=== PATIENT | male | born 1950 | race Caucasian/White ===

== ENCOUNTER 2016-06-12 09:23 | Day surgery (SDC) | payer MEDICARE ==
[~2016-06-12] VITALS: Ht 169.6 cm; Wt 85.9 kg
[2016-06-12] VITALS (10 sets, daily range): BP systolic 120–139; BP diastolic 68–91; PULSE 62–73; RESP 12–18; O2SAT 95–98
[~2016-06-12 09:23] MED LIST: CeFAZolin 2 Gm/50 mL D5W IV Premix IV ONE; Lactated Ringer's 1,000 ML IV ONE
[2016-06-12] MEDS ORDERED: MetoCLOpramide 5 mg/mL 2 mL Inj ONE (09:24)
[2016-06-12] MEDS ORDERED: Ondansetron 2 mg/mL 2 mL Inj ONE (09:24)
[2016-06-12] MEDS ORDERED: Dexamethasone 4 mg/mL Inj ONE (09:24)
[2016-06-12] MEDS ORDERED: Propofol 10,000 mCg/mL 20 mL Inj ONE (09:24)
[2016-06-12] MEDS ORDERED: Ketamine 10 mg/mL 20 mL Inj ONE (09:24)
--- NOTE | 2016-06-12 10:36 | PCM.HPANE ---
Patient Data Surgeon Admitting Provider: Attending Provider:Karrie Smith MD Primary Care Physician:Simba Bird DO Other Provider:Ana Laura Gainesingham Anesthesia Reason for Visit Left Spermatocele Ht/WT & BMI Height (Feet): 5 Height (Inches): 6.75 Weight (Kilograms): 85.9 Body Mass Index 29.00 Allergies Coded Allergies: No Known Allergies (Unverified , 06/08/16) Past Anesthesia History Anesthesia History: Denies:: Anesthesia Reactions, Fam Anesthesia Reaction, Fam Malignant Hypertherm, Malignant Hyperthermia Diabetes History Hx Diabetes?: No MRSA MRSA: No Medications Home Meds Incl Beta Panchito: No Discontinued Reported Medications Loratadine (Claritin)10 Mg [id number] Mg PO DAILY Ref 0 12/15/15 History History of ENT Problems?: Yes HEENT History: Positive for:: Sinus Problem (SEASONAL ALLERGIES) Hx of Heart Problems?: No Cardiovascular History: Denies:: Heart Murmur Hypertension Hx of Respiratory Problem?: No Respiratory History: Denies:: Use of C-PAP Machine Hx Neurologic Problems?: No Hx of GI Problems?: No Hx of Problems?: Yes Other Pertinent History: C/OF SLOWED STREAM Male Hx: Positive for:: Scrotal Mass (LT SPERMATOCELE=CURRENT PROBLEM S/P LT SPERMATOCELECTOMY/HYDROCELECTOMY) Denies:: Prostate Problems Skin History: Positive for:: History Skin Disorders? (HX OF AXILLARY LYMPHADENOPATHY ) Denies:: Pressure Ulcers Hx Musculoskeletal Problems?: Yes Musculoskeletal History: Positive for:: Osteoarthritis Hx of Psycho/Social Problems?: No Hx Surgeries?: Yes (LT SPERMATOCELECTOMY/HYDROCELECTOMY) Hx Any Other Health Problems?: Yes Other History: Denies:: Cancer Endocrine Disease (C/OF NIGHT SWEATS) Hospitalization Thyroid Disease History Blood Transfusions: Denies:: Blood Transfusions Hx Diabetes: No Smoking Status: Smoker Current Status UNK Stop/Bang Treated for Sleep Apnea?: No Do You Have a CPAP Machine?: No S-Snoring: Do You Snore Loudly: No T-Tired: feel tired, fatigued: No O-Obsered: Observed not breath: Yes P-Blood Pressure: treated: No B- Body Mass Index > 35 kg/m2: No A- Age over 50: Yes N- Neck Large Circumference: No G- Gender Male: Yes JANINA Total Score: 3 JANINA Risk Assessment: Low Risk, <3 Yes Risk Assessment Category Category 1A: Patient has history of documented sleep apnea, and HAS NOT received any narcotic, sedative or anesthesia administration during this stay. Category 1B: Patient has history of documented sleep apnea, and HAS received any narcotic , sedative or anesthesia administration during this stay Category 2: Patient has SUSPECTED Obstructive Sleep Apnea, and HAS received any narcotic , sedative or anesthesia administration during this stay. Category 3: Patient has SUSPECTED Obstructive Sleep Apnea and HAS NOT received narcotic, sedative or anesthesia administration during this stay. Category 4: Outpatient in Procedural Areas with known sleep apnea or who screen positive for High Risk via the STOP/BANG questionnaire. Exam Exam Vital Signs Vital Signs Date Time Temp Pulse Resp B/P Pulse Ox O2 Delivery O2 Flow Rate FiO2 06/12/16 09:54 36.6 62 18 130/78 98 Room Air General Appearance: Oriented X3 HEENT/AIRWAY: MP 2 Lungs: Normal Air Movement Heart: Regular Rate/Rhythm Meds/Labs/Diagnostics Admission Meds Current Medications Lactated Ringer's (Lr) 1,000 ml @ 120 mls/hr [id number] ONCE IV Last administered on 06/12/16t 09:28; Start 06/12/16 at 05:00; Stop 06/12/16 at 13:19 Plan Impression Patient chart reviewed, patient interviewed and anesthestic plan with risks, benefits, and alternatives discussed, and informed consent obtained. NPO Status: 10pm ASA Physical Status: ASA1 Normal Healthy Anesthetic Plan: GA Bene/Risks/Altern/Consents: Yes HP Complete Prior to Induction: Yes Joshua Santana MD Jun 12, 2016 10:36
[2016-06-12] MEDS ORDERED: Bupivacaine-MPF 0.5% 30 mL Inj INFILTRATE ONE (10:51)
[2016-06-12] MEDS ORDERED: Lactated Ringer's 500 ML IV PRN (11:21)
[2016-06-12] MEDS ORDERED: Lactated Ringer's 1,000 ML IV SCH (11:21)
[2016-06-12] MEDS ORDERED: fentaNYL-PF 50 mCg/mL 2 mL Inj IVPUSH PRN (11:25)
[2016-06-12] MEDS ORDERED: MetoCLOpramide 5 mg/mL 2 mL Inj IVPUSH PRN (11:25)
[2016-06-12] MEDS ORDERED: HYDROmorphone 1 mg/mL Inj IVPUSH PRN (11:25)
[2016-06-12] MEDS ORDERED: Ondansetron 2 mg/mL 2 mL Inj IVPUSH PRN (11:25)
[2016-06-12] MEDS ORDERED: Dexamethasone 4 mg/mL Inj IVPUSH PRN (11:25)
[2016-06-12] MEDS ORDERED: Phenylephrine 10,000 mCg/mL Inj IVPUSH PRN (11:25)
[2016-06-12] MEDS ORDERED: Labetalol 5 mg/mL 4 mL Inj IV PRN (11:25)
[2016-06-12] MEDS ORDERED: EPHEDrine Sulfate 50 mg/mL Inj IVPUSH PRN (11:25)
[2016-06-12] MEDS ORDERED: Bacitracin Ointment Packet TOPICAL ONE (11:46)
[2016-06-12] MEDS ORDERED: HYDROcodone-APAP 5-325 mg Tablet PO PRN (12:15)
--- NOTE | 2016-06-12 13:19 | PCM.ANEP1 ---
Post Anesthesia Phase 1 PACU Phase 1 Assessment Vital Signs Vital Signs Date Time Temp Pulse Resp B/P Pulse Ox O2 Delivery O2 Flow Rate FiO2 06/12/16 13:02 72 18 135/89 95 Room Air 06/12/16 12:35 70 18 139/91 95 Room Air 06/12/16 12:30 36.4 72 12 131/91 95 Room Air 06/12/16 12:25 72 16 131/80 95 Room Air 06/12/16 12:20 36.3 73 16 132/85 95 Room Air 06/12/16 12:15 63 12 123/84 97 Room Air 06/12/16 12:10 62 14 120/86 97 Simple Mask 8 06/12/16 12:05 64 13 123/73 97 Simple Mask 8 06/12/16 11:57 36.3 65 13 121/68 97 Simple Mask 8 06/12/16 09:54 36.6 62 18 130/78 98 Room Air Anesthetic Administered: GA Level of Alertness: Awake, talking Pain: No Nausea or Vomiting: No Airway Device: Oralpharangeal Airway Lungs: Normal Air Movement Joshua Santana MD Jun 12, 2016 13:19
--- NOTE | 2016-06-12 13:19 | PCM.ANEP2 ---
Post Anesthesia Evaluation ASA/CMS Post Anesthesia VS in Patient's Normal Range?: Yes Resp Stable; Airway Patent?: Yes CV Function & Hydration Stable: Yes Mental Status Recovered?: Yes Pain control Satisfactory?: Yes N/V Control Satisfactory?: Yes Joshua Santana MD Jun 12, 2016 13:19
--- NOTE | 2016-06-12 21:57 | OP ---
[address] [address] OPERATIVE REPORT PATIENT: MYRON BILL : 1950 MR#: [id number] ADMIT: 06/12/2016 JOB ID: [id number] DATE OF SURGERY: 06/12/2016 SURGEON: Karrie Smith MD. PREOPERATIVE DIAGNOSIS(ES): Left spermatocele. POSTOPERATIVE DIAGNOSIS(ES): Left spermatocele. PROCEDURE PERFORMED: Left spermatocelectomy. VP DESIGN: None. FINDINGS: Multiple left-sided spermatoceles. ANESTHESIA: General. ESTIMATED BLOOD LOSS: Less than 5 mL. DRAINS: None. SPECIMEN: Spermatocele sac. COMPLICATIONS: None. CONDITION: Stable. INDICATIONS FOR PROCEDURE: The patient is a 65-year-old gentleman with a history of left-sided spermatoceles. He had undergone previous spermatocelectomy and now has recurrence. DESCRIPTION OF PROCEDURE: After informed was obtained, patient was taken to the operating room. A time-out was performed, identifying correct patient, surgical site, and procedure. General anesthesia was smoothly induced. He was given intravenous antibiotics just prior to start of the procedure. His genitals were then prepped and draped in the usual sterile fashion. A 3-4 cm transverse incision was made along the mid aspect of the left scrotal sac. A 15 blade was used to incise skin. Bovie electrocautery was used to divide the subcutaneous fascia. The sac was delivered through the incision. Spermatoceles were seen and these were divided down to their stalk and passed off the table as spermatocele. Some bleeding posterior to the testicle was oversewn with 3-0 chromic. The testicle was then replaced in its orthotopic position. Then the dartos was closed with 3-0 chromic in a running fashion. The skin was closed with 3-0 chromic in a running subcuticular fashion. Bacitracin was placed over the wound and Kerlix was placed under the patient's scrotum. The patient was reversed from general anesthesia and taken to PACU in stable condition. [facility]
--- NOTE | 2016-06-14 16:37 | PATH ---
SURGICAL PATHOLOGY Attending Physician:Karrie Smith, CASE STATUS: Signed Out PATIENT NAME: MYRON BILL PID: [id number] : 1950 DATE COLLECTED:06/12/2016 20:35 SPECIMEN: Spermatocele CLINICAL HISTORY: LEFT SPERMATOCELE 1). LEFT SPERMATOCELE FINAL DIAGNOSIS: 1.LEFT SPERMATOCELE: SPERMATOCELE AND PORTION OF EPIDIDYMIS WITH NO PATHOLOGIC ALTERATIONS. NO EVIDENCE OF MALIGNANCY. ICD10 CODE N43.4 GROSS DESCRIPTION: The specimen is received in formalin, labeled with the patient's name, sublabeled as left spermatocele and consists of a piece of crawford-purple fatty membranous tissue (3.5 x 3.3 x 2.5 cm) containing an empty cavity (3.2 x 2.2 x 1.3 cm). A johnson rubbery tubular structure (length-1.3 cm, diameter-0.9 cm) is identified within the membranous tissue. Section code: (A) tissue, serial sections, food products sales representative. 06/13/16 MICRO DESCRIPTION: See diagnosis. ICD-9 CODES: CPT CODES: 1: 31988 Electronically Signed Out Sravani Yates MD [facility] Pathology [facility] [address], [place] [address] Technical component performed at [facility], [address] [place] [address] Ave[address], [address]
== END 2016-06-12 23:59 | disposition home or self-care (01) ==
LOC: SAS 09:23
PROVIDERS: ATTEND Urology
DX: N43.40 Spermatocele of epididymis, unspecified (principal); M19.90 Unspecified osteoarthritis, unspecified site
CPT/HCPCS: 54840; J0690; J1100; J2405; J2765; J7120